=== PATIENT | male | born 1995 | race Caucasian/White ===

== ENCOUNTER 2017-05-06 19:11 | Emergency (ER) | payer SELFPAY, OTHER ==
[2017-05-06 20:11] LABS: HEMATOCRIT 45.6 % (39.0-53.0); HEMOGLOBIN 15.4 g/dL (13.0-17.5); MEAN CORPUSCULAR HEMOGLOBIN 30 pg (25-35); MEAN CORPUSCULAR HGB CONC 34 g/dL (31-37); MEAN CORPUSCULAR VOLUME 90 fL (79-100); PLATELET COUNT 221 x10^3/uL (140-400); RED BLOOD COUNT 5.07 x10^6/uL (4.30-5.70); WHITE BLOOD COUNT 14.8 x10^3/uL (4.0-11.0)
[2017-05-06] MEDS: KETOROLAC 30 MG/ML INJ. IV (20:18)
[2017-05-06] MEDS: FAMOTIDINE 20 MG/2 ML VIAL IVP (20:20)
[2017-05-06 20:26] LABS: LIPASE 131 U/L (73-393)
[2017-05-06 20:26] LABS: ANION GAP 12 (6-14); BLOOD UREA NITROGEN 12 mg/dL (8-26); BUN/CREATININE RATIO 13 (6-20); CALCIUM 9.3 mg/dL (8.5-10.1); CARBON DIOXIDE 27 mmol/L (21-32); CHLORIDE 103 mmol/L (98-107); CREATININE 0.9 mg/dL (0.7-1.3); GFR 107.6; GLUCOSE 115 mg/dL (70-99); POTASSIUM 3.3 mmol/L (3.5-5.1); SODIUM 142 mmol/L (136-145)
[2017-05-06 20:32] LABS: ALBUMIN 4.4 g/dL (3.4-5.0); ALBUMIN/GLOBULIN RATIO 1.3 (1.0-1.7); ALK PHOS 107 U/L (46-116); ALT (SGPT) 18 U/L (16-63); AST (SGOT) 14 U/L (15-37); TOTAL BILIRUBIN 0.4 mg/dL (0.2-1.0); TOTAL PROTEIN 7.7 g/dL (6.4-8.2)
[2017-05-06 20:34] LABS: TROPONINI < 0.017 ng/mL (0.000-0.055)
[2017-05-06] MEDS: IPRATRPIUM/ALBUTEROL 0.5/2.5MG 3 ML NEBU. NEB (21:08)
[2017-05-06] MEDS: POTASSIUM CHLORIDE 20 MEQ TABLET.ER. PO (21:17)
== END 2017-05-06 21:30 | disposition home or self-care (01) ==
LOC: ER 19:11
DX: J20.9 Acute bronchitis, unspecified (principal); F17.210 Nicotine dependence, cigarettes, uncomplicated; Z91.013 Allergy to seafood
CPT/HCPCS: 36415; 71046; 80053; 83690; 84484; 85027; 93005; 94640; 96374; 96375; 99285-25; J1885; J7620; S0028